=== PATIENT | female | born 1985 | race Caucasian/White ===

== ENCOUNTER 2020-06-01 03:55 | Emergency (ER) | payer BC ==
[2020-06-01] MEDS ORDERED: Sodium Chloride 0.9% 2.5 ML Syringe FLUSH PRN (04:04)
[2020-06-01] MEDS ORDERED: Sodium Chloride 0.9% 10 ML Syringe FLUSH PRN (04:04)
[2020-06-01] MEDS ORDERED: Morphine 4 MG/ML Syringe IVPUSH ONE (04:04)
[2020-06-01] MEDS ORDERED: Ondansetron 4 MG/2 ML SDV IVPUSH ONE (04:04)
--- NOTE | 2020-06-01 04:18 | EDM.PDOC ---
ED HPI GENERAL MEDICAL PROBLEM - General Chief Complaint: Flank Pain Stated Complaint: RIGHT SIDE PAIN/BACK PAIN Time Seen by Provider: 06/01/20 03:55 - History of Present Illness INITIAL COMMENTS - FREE TEXT/NARRATIVE: 34-year-old female denies other medical problems past surgeries is presenting with severe right flank pain that started 30 minutes prior to arrival. Patient tried getting up and pacing but it did not help. Patient has never had similar symptoms in the past. Patient had nausea and nonbloody nonbilious emesis in the waiting room and since that time her pain is improved somewhat is currently 5 out of 10. No hematuria or dysuria patient denies a chance she could be no diarrhea. Patient was in her normal state of health until the pain started about 30 minutes ago. Starts in the right flank and radiates into the right lower quadrant. right flank, wraps around to abdomen Pain Score (Numeric/FACES): 7 - Related Data Allergies Allergy/AdvReac Type Severity Reaction Status Date / Time No Known Allergies Allergy Verified 06/01/20 04:06 Home Meds: Home Meds . [No Known Home Meds] 06/01/20 [History] Past Medical History - Past Health History Medical/Surgical History: Denies Medical/Surgical History Social & Family History - Family History Family Medical History: No Pertinent Family History - Tobacco Use Tobacco Use Status *Q: Never Tobacco User - Recreational Drug Use Recreational Drug Use: No ED ROS GENERAL - Review of Systems Review Of Systems: See Below Free Text/Narrative/Comment: General: No fever. Skin: No rash. Eyes: No vision problems. ENT: No sore throat. Neck: No neck stiffness. Respiratory: No shortness of breath. Cardiac: No chest pain. Gastrointestinal: Per HPI Urinary: No dysuria. Musculoskeletal: No myalgias/arthralgias. Neurologic: No headache. ED EXAM, GENERAL - Physical Exam Exam: See Below Free Text/Narrative:: General Appearance: No acute distress, appears comfortable Skin: No rash HEENT: Normocephalic/atraumatic, sclera anicteric, mucous membranes moist Neck: Normal range of motion Chest and Lungs: Bilateral breath sounds, clear to auscultation Cardiovascular: Regular rate and rhythm, no murmur Abdomen: Soft, non-tender Back: Normal, no CVA tenderness, back nontender Musculoskeletal: No edema or tenderness Neurologic: Awake, alert, no obvious deficits, moving all extremities Psychiatric: Appropriate, cooperative Course - Vital Signs Last Recorded V/S: Last Vital Signs Temp 95.7 F L 06/01/20 04:03 Pulse 83 06/01/20 04:24 Resp 16 06/01/20 04:24 BP 125/73 06/01/20 04:24 Pulse Ox 96 06/01/20 04:24 - Orders/Labs/Meds Orders: Active Orders 24 hr Category Date Time Status Ketorolac [Toradol] Med 06/01/20 05:36 Once 15 mg IVPUSH ONETIME ONE Sodium Chloride 0.9% [Saline Flush] Med 06/01/20 04:04 Active 10 ml FLUSH ASDIRECTED PRN Sodium Chloride 0.9% [Saline Flush] Med 06/01/20 04:04 Active 2.5 ml FLUSH ASDIRECTED PRN Saline Lock Insert [OM.PC] Stat Oth 06/01/20 04:04 Ordered Medication Orders Sodium Chloride (Saline Flush) 10 ml FLUSH ASDIRECTED PRN PRN Reason: Keep Vein Open Last Admin: 06/01/20 04:22 Dose: 10 ml Documented by: DESEAN Sodium Chloride (Saline Flush) 2.5 ml FLUSH ASDIRECTED PRN PRN Reason: Keep Vein Open Last Admin: 06/01/20 04:22 Dose: 2.5 ml Documented by: DESEAN Labs: Laboratory Tests 06/01/20 06/01/20 06/01/20 Range/Units 04:10 04:10 04:18 WBC 8.06 (4.0-11.0) K/uL RBC 4.90 (4.30-5.90) M/uL Hgb 15.3 (12.0-16.0) g/dL Hct 45.5 (36.0-46.0) % MCV 92.9 (80.0-98.0) fL MCH 31.2 (27.0-32.0) pg MCHC 33.6 (31.0-37.0) g/dL RDW Std Deviation 44.5 (28.0-62.0) fl RDW Coeff of Jennifer 13 (11.0-15.0) % Plt Count 278 (150-400) K/uL MPV 10.40 (7.40-12.00) fL Neut % (Auto) 46.1 L (48.0-80.0) % Lymph % (Auto) 43.1 H (16.0-40.0) % [place] % (Auto) 7.2 (0.0-15.0) % Eos % (Auto) 3.2 (0.0-7.0) % Baso % (Auto) 0.4 (0.0-1.5) % Neut # (Auto) 3.7 (1.4-5.7) K/uL Lymph # (Auto) 3.5 H (0.6-2.4) K/uL [place] # (Auto) 0.6 (0.0-0.8) K/uL Eos # (Auto) 0.3 (0.0-0.7) K/uL Baso # (Auto) 0.0 (0.0-0.1) K/uL Nucleated RBC % 0.0 /100WBC Nucleated RBCs # 0 K/uL Sodium (136-145) mmol/L Potassium (3.5-5.1) mmol/L Chloride (98-107) mmol/L Carbon Dioxide (21.0-32.0) mmol/L BUN (7.0-18.0) mg/dL Creatinine (0.6-1.0) mg/dL Est Cr Clr Drug Dosing mL/min Estimated GFR (MDRD) ml/min Glucose (74-106) mg/dL Calcium (8.5-10.1) mg/dL Total Bilirubin (0.2-1.0) mg/dL AST (15-37) IU/L ALT (14-63) IU/L Alkaline Phosphatase (46-116) U/L Total Protein (6.4-8.2) g/dL Albumin (3.4-5.0) g/dL Globulin (2.6-4.0) g/dL Albumin/Globulin Ratio (0.9-1.6) Urine Color YELLOW Urine Appearance CLOUDY Urine pH 5.5 (5.0-8.0) Ur Specific [place] >= 1.030 (1.001-1.035) Urine Protein NEGATIVE (NEGATIVE) mg/dL Urine Glucose (UA) NEGATIVE (NEGATIVE) mg/dL Urine Ketones NEGATIVE (NEGATIVE) mg/dL Urine Occult Blood LARGE H (NEGATIVE) Urine Nitrite NEGATIVE (NEGATIVE) Urine Bilirubin NEGATIVE (NEGATIVE) Urine Urobilinogen 0.2 (<2.0) EU/dL Ur Leukocyte Esterase NEGATIVE (NEGATIVE) Urine RBC 50-75 H (0-2/HPF) Urine WBC 0-2 (0-5/HPF) Ur Epithelial Cells OCCASIONAL (NONE-FEW) Urine Bacteria FEW (NEGATIVE) Urine Mucus LIGHT (NONE-MOD) Urine HCG, Qual NEGATIVE (NEGATIVE) 06/01/20 Range/Units 04:18 WBC (4.0-11.0) K/uL RBC (4.30-5.90) M/uL Hgb (12.0-16.0) g/dL Hct (36.0-46.0) % MCV (80.0-98.0) fL MCH (27.0-32.0) pg MCHC (31.0-37.0) g/dL RDW Std Deviation (28.0-62.0) fl RDW Coeff of Jennifer (11.0-15.0) % Plt Count (150-400) K/uL MPV (7.40-12.00) fL Neut % (Auto) (48.0-80.0) % Lymph % (Auto) (16.0-40.0) % [place] % (Auto) (0.0-15.0) % Eos % (Auto) (0.0-7.0) % Baso % (Auto) (0.0-1.5) % Neut # (Auto) (1.4-5.7) K/uL Lymph # (Auto) (0.6-2.4) K/uL [place] # (Auto) (0.0-0.8) K/uL Eos # (Auto) (0.0-0.7) K/uL Baso # (Auto) (0.0-0.1) K/uL Nucleated RBC % /100WBC Nucleated RBCs # K/uL Sodium 139 (136-145) mmol/L Potassium 3.3 L (3.5-5.1) mmol/L Chloride 104 (98-107) mmol/L Carbon Dioxide 27.4 (21.0-32.0) mmol/L BUN 11 (7.0-18.0) mg/dL Creatinine 0.9 (0.6-1.0) mg/dL Est Cr Clr Drug Dosing 68.35 mL/min Estimated GFR (MDRD) > 60.0 ml/min Glucose 104 (74-106) mg/dL Calcium 8.8 (8.5-10.1) mg/dL Total Bilirubin 0.3 (0.2-1.0) mg/dL AST 15 (15-37) IU/L ALT 22 (14-63) IU/L Alkaline Phosphatase 82 (46-116) U/L Total Protein 7.1 (6.4-8.2) g/dL Albumin 3.5 (3.4-5.0) g/dL Globulin 3.6 (2.6-4.0) g/dL Albumin/Globulin Ratio 1.0 (0.9-1.6) Urine Color Urine Appearance Urine pH (5.0-8.0) Ur Specific [place] (1.001-1.035) Urine Protein (NEGATIVE) mg/dL Urine Glucose (UA) (NEGATIVE) mg/dL Urine Ketones (NEGATIVE) mg/dL Urine Occult Blood (NEGATIVE) Urine Nitrite (NEGATIVE) Urine Bilirubin (NEGATIVE) Urine Urobilinogen (<2.0) EU/dL Ur Leukocyte Esterase (NEGATIVE) Urine RBC (0-2/HPF) Urine WBC (0-5/HPF) Ur Epithelial Cells (NONE-FEW) Urine Bacteria (NEGATIVE) Urine Mucus (NONE-MOD) Urine HCG, Qual (NEGATIVE) Meds: Medications Generic Name Dose Route Start Last Admin Trade Name Freq PRN Reason Stop Dose Admin Sodium Chloride 10 ml 06/01/20 04:04 06/01/20 04:22 Saline Flush FLUSH 10 ml ASDIRECTED PRN Administration Keep Vein Open Sodium Chloride 2.5 ml 06/01/20 04:04 06/01/20 04:22 Saline Flush FLUSH 2.5 ml ASDIRECTED PRN Administration Keep Vein Open Discontinued Medications Generic Name Dose Route Start Last Admin Trade Name Freq PRN Reason Stop Dose Admin Morphine Sulfate 4 mg 06/01/20 04:04 06/01/20 04:19 Morphine IVPUSH 06/01/20 04:05 4 mg ONETIME ONE Administration Ondansetron HCl 4 mg 06/01/20 04:04 06/01/20 04:19 Zofran IVPUSH 06/01/20 04:05 4 mg ONETIME ONE Administration Departure - Departure Time of Disposition: 05:37 Disposition: Home, Self-Care 01 Condition: Good Clinical Impression: Renal colic - Discharge Information *PRESCRIPTION DRUG MONITORING PROGRAM REVIEWED*: Not Applicable *COPY OF PRESCRIPTION DRUG MONITORING REPORT IN PATIENT ANNA: Not Applicable Instructions: Renal Colic, [id number] Forms: ED Department Discharge Additional Instructions: On your CT scan tonight you had a number of very small kidney stones sitting in your kidneys. Given your presentation I think it likely that you rapidly passed a very small kidney stone. Because we know you have kidney stones or kidney your risk for having this happen again. I encourage you to follow-up with primary care doctor for primary care. [facility] [address] [place] [id number] [facility] [address] [place] [id number] The following information is given to patients seen in the emergency department who are being discharged to home. This information is to outline your options for follow-up care. We provide all patients seen in our emergency department with a follow-up referral. The need for follow-up, as well as the timing and circumstances, are variable depending upon the specifics of your emergency department visit. If you don't have a primary care physician on staff, we will provide you with a referral. We always advise you to contact your personal physician following an emergency department visit to inform them of the circumstance of the visit and for follow-up with them and/or the need for any referrals to a consulting specialist. The emergency department will also refer you to a specialist when appropriate. This referral assures that you have the opportunity for follow-up care with a specialist. All of these measure are taken in an effort to provide you with optimal care, which includes your follow-up. Under all circumstances we always encourage you to contact your private physician who remains a resource for coordinating your care. When calling for follow-up care, please make the office aware that this follow-up is from your recent emergency room visit. If for any reason you are refused follow-up, please contact the [facility] Emergency Department at and asked to speak to the emergency department charge nurse. Sepsis Event Note (ED) - Evaluation Sepsis Screening Result: No Definite Risk - Focused Exam Vital Signs: Vital Signs Temp Pulse Resp BP Pulse Ox 06/01/20 04:24 83 16 125/73 96 06/01/20 04:03 95.7 F L 81 18 132/76 95 - My Orders Last 24 Hours: My Active Orders 06/01/20 04:04 Sodium Chloride 0.9% [Saline Flush] 10 ml FLUSH ASDIRECTED PRN Sodium Chloride 0.9% [Saline Flush] 2.5 ml FLUSH ASDIRECTED PRN Saline Lock Insert [OM.PC] Stat 06/01/20 05:36 Ketorolac [Toradol] 15 mg IVPUSH ONETIME ONE - Assessment/Plan Last 24 Hours: My Active Orders 06/01/20 04:04 Sodium Chloride 0.9% [Saline Flush] 10 ml FLUSH ASDIRECTED PRN Sodium Chloride 0.9% [Saline Flush] 2.5 ml FLUSH ASDIRECTED PRN Saline Lock Insert [OM.PC] Stat 06/01/20 05:36 Ketorolac [Toradol] 15 mg IVPUSH ONETIME ONE Assessment:: 34-year-old female presenting with signs and symptoms that seem most consistent with renal colic. Ovarian torsion considered as well but I think renal colic is more likely in this case. Appendicitis considered diverticulitis considered I think these are less likely. Morphine Zofran has been ordered for symptom control CBC CMP urinalysis with urine and CT abdomen pelvis without contrast to further assess if patient does not have renal colic and/or there is any significant abnormality found on the scan we may need to pursue an ultrasound but we will readdress this. 0535: Patient symptoms of primarily resolved she has some very minimal ache in the right flank remaining. Labs are notable for mild microscopic hematuria normal LFTs normal white count. CT scan demonstrates multiple very small kidney stones in the bilateral kidneys. No currently obstructing stones. Given the symptom resolution I think it most likely that she passed a kidney stone. There is no significant adnexal mass that would indicate a risk for ovarian torsion and given that her symptoms have resolved I see no indication for emergent pelvic ultrasound or further testing at this time. Will provide a dose of Toradol for her residual symptoms and patient will follow up with primary care.
[2020-06-01 04:53] LABS: BLOOD UREA NITROGEN,BUN 11 mg/dL (7.0-18.0); CARBON DIOXIDE,CO2 27.4 mmol/L (21.0-32.0); CHLORIDE,CL 104 mmol/L (98-107); GLUCOSE RANDOM 104 mg/dL (74-106); POTASSIUM,K 3.3 mmol/L (3.5-5.1); SODIUM,NA 139 mmol/L (136-145)
--- NOTE | 2020-06-01 04:57 | CT ---
Indication: Right flank pain Technique: Nonenhanced axial CT imaging through the abdomen and pelvis. Sagittal and coronal reconstructions are provided. Comparison: None Findings: There is normal renal parenchymal attenuation without hydronephrosis. There are two 1-2 mm nonobstructing right renal stones. A single 1-2 mm nonobstructing stone is seen on the left. There are no ureteral or urinary bladder stones. Calcific densities in the pelvis are consistent with phleboliths. There is unremarkable noncontrast appearance of the liver, gallbladder, spleen, pancreas, and adrenal glands. There is no abdominal lymphadenopathy. The abdominal aorta is normal in caliber. The stomach and duodenum are unremarkable. There are no abnormally dilated small bowel loops. The appendix is noninflamed. There is no colonic wall thickening. No inflammatory changes are demonstrated in the mesentery. Intrauterine device is noted. The urinary bladder, uterus, and ovaries are otherwise unremarkable. No significant free fluid is seen in the pelvis. The osseous structures are unremarkable. The included lung bases are clear. Impression: Small bilateral nonobstructing renal stones. No ureteral or bladder stones. No urinary obstruction. Please note that all CT scans at this facility use dose modulation, iterative reconstruction, and/or weight-based dosing when appropriate to reduce radiation dose to as low as reasonably achievable. Dictated by Turner Putnam MD @ Jun 01 2020 4:48AM Signed by Dr. Turner Putnam @ Jun 01 2020 4:54AM
[2020-06-01] MEDS ORDERED: Ketorolac 30 MG/ML SDV IVPUSH ONE (05:36)
== END 2020-06-01 06:11 | disposition home or self-care (01) ==
LOC: MW.ED 03:55
DX: N23 Unspecified renal colic (principal); R31.29 Other microscopic hematuria
CPT/HCPCS: 36415; 74176; 80053; 81001; 81025; 85025; 96374; 96375; 99284; J1885; J2270; J2405; 99283

== ENCOUNTER 2021-06-26 12:25 | Emergency (ER) | payer BC ==
[2021-06-26] MEDS ORDERED: Dexamethasone 10 MG/ML SDV IVPUSH ONE (13:09)
--- NOTE | 2021-06-26 13:13 | EDM.PDOC ---
ED HPI GENERAL MEDICAL PROBLEM - General Chief Complaint: ENT Problem Stated Complaint: SWOLLEN TONSILS Time Seen by Provider: 06/26/21 13:05 Source of Information: Reports: Patient History Limitations: Reports: No Limitations - History of Present Illness INITIAL COMMENTS - FREE TEXT/NARRATIVE: Patient is a 35-year-old female no past medical history presents today for sore throat. Patient states she has reoccurring strep throat about once a year. States that she has had pain with swallowing since earlier today with some voice changes. Denies any neck pain fever chills shortness of breath or other complaints. Throat Pain Score (Numeric/FACES): 5 - Related Data Allergies Allergy/AdvReac Type Severity Reaction Status Date / Time No Known Allergies Allergy Verified 06/01/20 04:06 Home Meds: Home Meds . [No Known Home Meds] 06/01/20 [History] Past Medical History - Past Health History Medical/Surgical History: Denies Medical/Surgical History Social & Family History - Family History Family Medical History: No Pertinent Family History ED ROS ENT - Review of Systems Review Of Systems: See Below Constitutional: Reports: No Symptoms HEENT: Reports: Throat Pain, Throat Swelling Respiratory: Reports: No Symptoms Endocrine: Reports: No Symptoms GI/Abdominal: Reports: No Symptoms : Reports: No Symptoms Musculoskeletal: Reports: No Symptoms Skin: Reports: No Symptoms Neurological: Reports: No Symptoms Psychiatric: Reports: No Symptoms Hematologic/Lymphatic: Reports: No Symptoms Immunologic: Reports: No Symptoms ED EXAM, ENT - Physical Exam Exam: See Below Exam Limited By: No Limitations General Appearance: Alert, WD/WN, No Apparent Distress Mouth/Throat: Normal Inspection, Normal Gums, Muffled Voice, Tonsillar Exudates, Tonsillar Swelling. No: Dental Trauma, Drooling, Throat Pain, Throat Swelling Head: Atraumatic Respiratory/Chest: No Respiratory Distress, Lungs Clear, Normal Breath Sounds Cardiovascular: Normal Peripheral Pulses, Regular Rate, Rhythm GI/Abdominal: Normal Bowel Sounds, Soft, Non-Tender Extremities: Normal Inspection Neurological: Alert, Oriented Course - Vital Signs Last Recorded V/S: Last Vital Signs Temp 98.5 F 06/26/21 13:04 Pulse 105 H 06/26/21 13:04 Resp 15 06/26/21 13:04 BP 118/83 06/26/21 13:04 Pulse Ox 98 06/26/21 13:04 - Orders/Labs/Meds Labs: Laboratory Tests 06/26/21 Range/Units 13:00 Group A Strep (PCR) DETECTED H (NOT DETECT) Meds: Medications Discontinued Medications Generic Name Dose Route Start Last Admin Trade Name Jose PRN Reason Stop Dose Admin Dexamethasone 10 mg 06/26/21 13:09 06/26/21 13:40 Dexamethasone 10 Mg/Ml Sdv IVPUSH 06/26/21 13:10 10 mg ONETIME ONE Administration - Re-Assessments/Exams Free Text/Narrative Re-Assessment/Exam: 06/26/21 14:14 Strep positive patient antibiotics to be sent to [facility] patient to be discharged home. Departure - Departure Time of Disposition: 14:15 Disposition: Home, Self-Care 01 Condition: Good Clinical Impression: Strep pharyngitis - Discharge Information *PRESCRIPTION DRUG MONITORING PROGRAM REVIEWED*: Not Applicable *COPY OF PRESCRIPTION DRUG MONITORING REPORT IN PATIENT ANNA: Not Applicable Instructions: Strep Throat, Adult, [id number] Forms: ED Department Discharge Additional Instructions: You were seen today for throat pain you are strep positive we will send you home antibiotics that you should take for the next 10 days if your symptoms worsen please return to the ED otherwise follow with your primary care physician. The following information is given to patients seen in the emergency department who are being discharged to home. This information is to outline your options for follow-up care. We provide all patients seen in our emergency department with a follow-up referral. The need for follow-up, as well as the timing and circumstances, are variable depending upon the specifics of your emergency department visit. If you don't have a primary care physician on staff, we will provide you with a referral. We always advise you to contact your personal physician following an emergency department visit to inform them of the circumstance of the visit and for follow-up with them and/or the need for any referrals to a consulting specialist. The emergency department will also refer you to a specialist when appropriate. This referral assures that you have the opportunity for follow-up care with a specialist. All of these measure are taken in an effort to provide you with optimal care, which includes your follow-up. Under all circumstances we always encourage you to contact your private hysician who remains a resource for coordinating your care. When calling for follow-up care, please make the office aware that this follow-up is from your recent emergency room visit. If for any reason you are refused follow-up, please contact the [facility] Emergency Department at and asked to speak to the emergency department charge nurse. Please follow up with your primary care physician. If you do not have a primary care physician, see below: [facility] [address] [place] [id number] [facility] [address] [place] [address] Sepsis Event Note (ED) - Focused Exam Vital Signs: Vital Signs Temp Pulse Resp BP Pulse Ox 06/26/21 13:04 98.5 F 105 H 15 118/83 98 - Assessment/Plan Plan: Patient is a 35-year-old female presents today for throat pain. Patient on exam is a soft nontender throat she has some swelling of the tonsils with some exudate. Will give Decadron test for strep and reassess.
== END 2021-06-26 14:30 | disposition home or self-care (01) ==
LOC: MW.ED 12:25
DX: J02.0 Streptococcal pharyngitis (principal)
CPT/HCPCS: 87651; 96374; 99284; J1100

== ENCOUNTER 2021-10-15 16:20 | Emergency (ER) | payer BC ==
[2021-10-15] MEDS ORDERED: methylPREDNISolone Sodium Succinate 125 MG/2 ML SDV IVPUSH ONE (17:11)
[2021-10-15] MEDS ORDERED: methylPREDNISolone Sodium Succinate 125 MG/2 ML SDV IM ONE (17:11)
[2021-10-15] MEDS ORDERED: Sodium Chloride 0.9% 1,000 ML IV ONE (17:16)
[2021-10-15 17:54] LABS: BLOOD UREA NITROGEN,BUN 8 mg/dL (7.0-18.0); CARBON DIOXIDE,CO2 27.4 mmol/L (21.0-32.0); CHLORIDE,CL 102 mmol/L (98-107); GLUCOSE RANDOM 86 mg/dL (74-106); POTASSIUM,K 3.9 mmol/L (3.5-5.1); SODIUM,NA 138 mmol/L (136-145)
[2021-10-15] MEDS ORDERED: Penicillin G Benzathine 1,200,000 Units/2 ML Syringe IM ONE (18:22)
[2021-10-15] MEDS ORDERED: Iopamidol 755 MG/ML 500 ML Multipack Bottle IVPUSH ONE (18:51)
== END 2021-10-15 20:08 | disposition home or self-care (01) ==
LOC: MW.ED 16:20
DX: J02.0 Streptococcal pharyngitis (principal)
CPT/HCPCS: 36415; 70491; 80053; 85025; 87651; 96372; 96374; 99283; J0561; J2930; J7030; Q9967